=== PATIENT | female | born 1995 | race Caucasian/White ===

== ENCOUNTER 2023-07-11 08:30 | Outpatient (CLI) | payer OTHER ==
[2023-07-11 09:42] LABS: HEMOGLOBIN 13.8 g/dL (12.0-15.00); MEAN CELL VOLUME 88.6 fL (80.00-100.00); MEAN CORPUSCULAR HEMOGLOBIN 29.9 pg (27.00-32.0); MEAN CORPUSCULAR HGB CONC 33.7 g/dl (32.0-36.0); PLATELET COUNT 292 K/uL (150-450); RED BLOOD COUNT 4.63 M/uL (4.00-6.00); RED CELL DISTRIBUTION WIDTH 13.2 % (11.5-14.5)
[2023-07-11 09:45] LABS: PH,URINE 5.5 (5.0-8.0); URINE APPEARANCE Clear; URINE BILIRRUBIN Negative (NEGATIVE); URINE BLOOD Negative; URINE COLOR Yellow; URINE GLUCOSE Negative (NEGATIVE); URINE LEUKOCYTE Negative; URINE NITRATE Negative; URINE PROTEIN Negative (NEGATIVE); URINE UROBILINOGEN 0.2 E.U./dl
[2023-07-11 09:50] LABS: URINE BACTERIA 230.5 uL (0.0-1933); URINE EPITHELIAL CELLS 2.1 uL (0.0-38.8); URINE RBC 4.1 uL (0.0-20.8); URINE WBC 7.7 uL (0.0-23.2)
[2023-07-11 10:28] LABS: ALBUMIN 4.2 gm/dL (3.4-5.0); CALCIUM 9.4 mg/dL (8.5-10.1); CHOL HDL RATIO 2.7 (0-5.0); CREATININE SERUM 0.59 mg/dL (0.55-1.02); GFR 122.27; GLOBULINA 3.2 G/DL (2.4-3.5); POTASSIUM 4.21 mEq/L (3.5-5.1); T4 TOTAL 10.27 UG/DL (4.8-13.9); TOTAL PROTEIN 7.4 gm/dL (6.4-8.2); TSH 1.28 uIU/mL (0.358-3.74)
[2023-07-13 09:07] LABS: T3 TOTAL 1.33 ng/ml (0.846-2.02); VITAMIN D3 25 HYDROXY 29.22 ng/ml (30-120)
== END 2023-07-11 08:31 | disposition home or self-care (01) ==
LOC: LAB 08:30
DX: D64.9 Anemia, unspecified (principal); R19.5 Other fecal abnormalities; Z13.228 Encounter for screening for other metabolic disorders; E55.9 Vitamin D deficiency, unspecified; E03.9 Hypothyroidism, unspecified; R70.0 Elevated erythrocyte sedimentation rate; Z13.220 Encounter for screening for lipoid disorders; I50.9 Heart failure, unspecified; I11.0 Hypertensive heart disease with heart failure